=== PATIENT | female | born 1995 | race Caucasian/White ===

== ENCOUNTER 2021-02-12 06:29 | Emergency (ER) | payer OTHER, MEDICAID, SELFPAY ==
[2021-02-12 06:39] VITALS: BP 113/84; PULSE 117; RESP 18; TEMP 36.8; O2SAT 99
[2021-02-12 06:49] VITALS: BP 110/77; PULSE 101; RESP 14; O2SAT 100
--- NOTE | 2021-02-12 07:27 | ED_ITS ---
HPI - Skin/Abscess/Foreign Bdy General Chief complaint: Skin/Abscess/Foreign Body Stated complaint: ingrown hair on vagina x3 days Time Seen by Provider: 02/12/21 07:10 History of Present Illness HPI narrative: ingrown hair on right labia majora first noted about 1 week ago. Since that time the entire labia has become painful and swollen. There has been some purulent drainage. No systemic symptoms. Related Data Allergies Allergy/AdvReac Type Severity Reaction Status Date / Time codeine Allergy Nausea and Verified 02/12/21 06:54 Vomiting Review of Systems Review of Systems: All systems reviewed & are unremarkable except as noted in HPI and below [facility] Social History Social History (Updated 02/12/21 @ 18:27 by Lonny Tejada MD) Smoking status: Current every day smoker Exam Const: General: healthy appearing, no acute distress and alert Orientation/consciousness: patient oriented x3 HENMT: Head: normal to inspection Neck: Neck: normal visual inspection and no lymphadenopathy Chest: Chest palpation & inspection: no tenderness Resp: Effort & Inspection: normal respiratory effort Auscultation: clear to auscultation bilaterally, no rales, no rhonchi and no wheezes Cardio: Jugular venous distension: no JVD Rate: regular rate Rhythm: regular rhythm Heart sounds: no murmurs GI: Inspection: non-distended GI Palp: Yes Soft to palpation and No Tenderness to palpation present (GI) : Other: Large abscess of right labia majora Skin: General skin exam: normal color Neuro: General: patient oriented x3 and moves all extremities Speech: normal speech Extrem: General: no edema Psych: Appearance: well kempt Affect: normal affect Course Vital Signs Vital signs: Vital Signs Temperature 36.8 C 02/12/21 06:39 Pulse Rate 117 H 02/12/21 06:39 Respiratory Rate 18 02/12/21 06:39 Blood Pressure 113/84 02/12/21 06:39 Pulse Oximetry 99 02/12/21 06:39 Temperature 36.8 C 02/12/21 06:39 Pulse Rate 101 H 02/12/21 06:49 Respiratory Rate 14 02/12/21 06:49 Blood Pressure 110/77 02/12/21 06:49 Pulse Oximetry 100 02/12/21 06:49 Procedures Abscess I/D other: Date of Incision: 02/12/21 Time of Incision: 08:57 Side (if applicable): right (labia majora) Local Anesthetic: lidocaine 1% and with epi Amount of anesthesia used (mL): 4 Technique: incised with #11 blade Amount of fluid expressed (mL): 5 Irrigation: Yes Packing used?: plain I&D Results: Pus Discharge Plan Discharge Clinical Impression: Abscess of right genital labia Patient Disposition: Home, Self-Care Condition: Stable Instructions: Abscess (ED) Additional Instructions: Remove packing in 48 hours Prescriptions: New sulfamethoxazole-trimethoprim [Bactrim DS] 800-160 mg tablet 1 tablet PO Q12H Qty: 14 RF: 0 Follow-up/Referrals: PHYSICIAN,LIBRARY MEDIA SPECIALIST [Primary Care Provider] - Elton Barrett MD [Physician] -
[2021-02-12] MEDS: KETOROLAC (*BKC) 60 MG/2 ML VIAL IM (07:58)
== END 2021-02-12 09:15 | disposition home or self-care (01) ==
PROVIDERS: Emergency Provider Emergency Medicine
DX: N76.4 Abscess of vulva (principal); F17.200 Nicotine dependence, unspecified, uncomplicated
CPT/HCPCS: 56405; 96372; 99283; A9270; J1885